=== PATIENT | female | born 1980 | race Two or more races ===

== ENCOUNTER 2017-06-19 18:11 | Emergency (ER) | payer OTHER ==
[~2017-06-19] VITALS: Ht 157.5 cm; Wt 97.2 kg
[2017-06-19 18:18] VITALS: BP 140/69; Ht 157.5 cm; Wt 97.2 kg
== END 2017-06-19 18:54 | disposition home or self-care (01) ==
LOC: ED 18:11
DX: B34.9 Viral infection, unspecified (principal); H60.93 Unspecified otitis externa, bilateral